=== PATIENT | male | born 1955 | race Caucasian/White ===

== ENCOUNTER 2018-03-23 07:47 | Day surgery (SDC) | payer OTHER ==
[~2018-03-23] VITALS: Ht 177.8 cm; Wt 85.9 kg
[~2018-03-23 07:47] MED LIST: Aspirin EC81 MG; B Complex1 EAC2 PO; CALCAVITD PO; CEPH500 PO; CODACE30 PO; DUEXIS 800-26.1 EACH PO; ESCI10; ESCI20 PO; FAMO20 PO; HYDMOR2 PO; LISI20 PO; LORA1; Lamictal200 MG PO; Multiple Vitam1 EAC1; OMEP20ER PO; OXYC5; PROM25 PO; PROP40; RXOXYACE PO; SUCR1 PO; SUMA25 PO; VALS80; Vitamin C100 M1; ZESTORETIC 20-121 EA PO
[2018-03-23] MEDS ORDERED: HYDR1TAB94 (08:33)
[2018-03-23] MEDS ORDERED: ASCO500 (08:33)
[2018-03-23] MEDS ORDERED: Cholestyramine R5 GM (08:33)
[2018-03-23] MEDS ORDERED: Vitamin B Comple1 EA (08:34)
[2018-03-23] MEDS ORDERED: ERGO400 (08:34)
== END 2018-03-23 10:30 | disposition home or self-care (01) ==
LOC: ORSCSDS 07:47
PROVIDERS: Internal Medicine Gastroenterology
PROC: 0DBE8ZX Excision of Large Intestine, Via Natural or Artificial Opening Endoscopic, Diagnostic (ICD-10-PCS; principal; 2018-03-23 09:00)
PROC: 0DB58ZX Excision of Esophagus, Via Natural or Artificial Opening Endoscopic, Diagnostic (ICD-10-PCS; principal; 2018-03-23 09:00)
DX: R19.4 Change in bowel habit (principal); R15.9 Full incontinence of feces; K22.70 Barrett's esophagus without dysplasia; Z83.71 Family history of colonic polyps; K21.9 Gastro-esophageal reflux disease without esophagitis; K57.30 Diverticulosis of large intestine without perforation or abscess without bleeding; K22.2 Esophageal obstruction; K44.9 Diaphragmatic hernia without obstruction or gangrene; G47.33 Obstructive sleep apnea (adult) (pediatric); I10 Essential (primary) hypertension; Z79.899 Other long term (current) drug therapy; Z79.82 Long term (current) use of aspirin
CPT/HCPCS: 88305; J0330; J1980; J2405; J7120

== ENCOUNTER 2018-09-15 08:57 | Day surgery (SDC) | payer OTHER ==
[~2018-09-15 08:57] MED LIST changes: +ASCO500; +Cholestyramine R5 GM; +ERGO400; +HYDR1TAB94; +Vitamin B Comple1 EA
== END 2018-09-15 23:10 | disposition home or self-care (01) ==
LOC: RAD 08:57
PROC: BQ271ZZ Computerized Tomography (CT Scan) of Right Knee using Low Osmolar Contrast (ICD-10-PCS; principal; 2018-09-15)
DX: S83.241A Other tear of medial meniscus, current injury, right knee, initial encounter (principal); M71.21 Synovial cyst of popliteal space [Baker], right knee; M17.11 Unilateral primary osteoarthritis, right knee
CPT/HCPCS: 27369; 73580; 73701; 77002; A9577; Q9967